=== PATIENT | male | born 1950 | race Caucasian/White ===

== ENCOUNTER → 2018-09-20 | Outpatient (CLI) | payer OTHER ==
[~2018-09-20] MED LIST: ALBU90OI6 INH; CLON.5 PO; CLON1 PO; LEVSOD25 PO; LITH300C PO; LITH300ER PO; LOVA20 PO; LOVA40 PO
[2018-09-20 14:25] LABS: Bacteria Not Seen /hpf; Red Blood Cells, Urine 0-2 /hpf (0-2); Squamous Epithelial Cells Rare /hpf (Few); White Blood Cells, Urine 0-2 /hpf (0-5)
== END ==
LOC: LAB SHORT 13:25 → LAB 13:25
PROVIDERS: Family Medicine
DX: R35.0 Frequency of micturition (principal)
CPT/HCPCS: 81015

== ENCOUNTER → 2018-11-26 | Outpatient (CLI) | payer OTHER ==
[2018-11-26 11:22] LABS: Bacteria Rare /hpf; Red Blood Cells, Urine 0-2 /hpf (0-2); Squamous Epithelial Cells Not Seen /hpf (Few); White Blood Cells, Urine 0-2 /hpf (0-5)
== END | disposition home or self-care (01) ==
LOC: LAB UCHC 09:00 → LAB 09:00 → LAB SHORT 09:00 → LAB FUT 09-25 09:15 → EDSTATUS 09-25 09:15
PROVIDERS: Family Medicine
DX: R35.0 Frequency of micturition (principal)
CPT/HCPCS: 81015

== ENCOUNTER → 2020-11-19 | Outpatient (CLI) | payer OTHER ==
[2020-11-19 12:28] LABS: BASOPHILS ABSOLUTE AUTO 0.07 K/mm3 (0.00-0.23); BASOPHILS PERCENT AUTO 1 % (0-2); EOSINOPHILS PERCENT AUTO 1 % (0-6); Hematocrit 41.7 % (37.0-53.0); Hemoglobin 13.8 g/dL (13.5-17.5); IMMATURE GRAN ABSOLUTE AUTO 0.02 K/mm3 (0.00-0.10); IMMATURE GRAN PERCENT AUTO 0 % (0-1); LYMPHOCYTES PERCENT AUTO 25 % (21-46); MONOCYTES ABSOLUTE AUTO 0.56 K/mm3 (0.16-1.47); MONOCYTES PERCENT AUTO 7 % (4-13); Mean Corpuscular HGB 30.5 pg (26.0-34.0); Mean Corpuscular HGB Conc 33.1 g/dL (31.5-36.5); Mean Corpuscular Volume 92 fL (80-100); Mean Platelet Volume 10.2 fL (9.1-12.4); NEUTROPHILS PERCENT AUTO 66 % (41-73); Platelet Count 239 K/mm3 (150-400); RDW Coefficient Variation 13.3 % (11.7-14.2); RDW Standard Deviation 45.8 fL (35.1-46.3); Red Blood Cell Count 4.52 M/mm3 (4.30-5.90); White Blood Cell Count 8.45 K/mm3 (4.00-11.30)
[2020-11-19 12:51] LABS: Alanine Aminotransfer (ALT/SGP 20 U/L (12-78); Albumin, Blood 4.1 g/dL (3.4-5.0); Alk Phos 67 U/L (40-126); Anion Gap 7 mmol/L (6-16); Aspartate Aminotrans (AST/SGOT 18 U/L (12-37); Bilirubin, Total 0.5 mg/dL (0.1-1.0); Blood Urea Nitrogen 16 mg/dL (8-24); Bun/Creatinine Ratio 15.8 (12.0-20.0); CO2, Blood 28 mmol/L (21-32); Calcium, Blood 9.7 mg/dL (8.5-10.1); Chloride, Blood 105 mmol/L (98-108); Creatinine, Blood 1.01 mg/dL (0.60-1.20); Free Thyroxine 1.03 ng/dL (0.70-1.60); Glomerular Filtration Rate >60 (60-); Glucose, Blood 88 mg/dL (70-99); Potassium, Blood 4.5 mmol/L (3.5-5.5); Sodium, Blood 140 mmol/L (136-145); Thyroid Stimulating Hormone 1.767 uIU/mL (0.360-4.800); Total Protein, Blood 8.1 g/dL (6.4-8.2)
[2020-11-19 15:18] LABS: Triiodothyronine, Free 2.55 pg/mL (2.18-3.98)
== END | disposition home or self-care (01) ==
LOC: LAB SHORT 12:22 → LAB 12:22
PROVIDERS: General Practice
DX: E03.9 Hypothyroidism, unspecified (principal); F31.9 Bipolar disorder, unspecified; Z79.899 Other long term (current) drug therapy
CPT/HCPCS: 80053; 82607; 82746; 84439; 84443; 84481; 85025

== ENCOUNTER → 2020-12-03 | Outpatient (CLI) | payer OTHER | END | disposition home or self-care (01) | LOC: LAB 12:31 → LAB SHORT 12:31 | PROVIDERS: Family Medicine | DX: R35.0 Frequency of micturition (principal) | CPT/HCPCS: 84153 ==

== ENCOUNTER 2021-03-21 10:00 | Day surgery (SDC) | payer OTHER ==
[~2021-03-21] VITALS: Ht 180.3 cm; Wt 86.4 kg
[~2021-03-21 10:00] MED LIST changes: +Cyclobenzaprine5 MG; +EUTHYROX125 MCG; +GABA300; +TAMS.4ER; +XARELTO20 MG
--- NOTE | 2021-03-21 11:07 | NUR ---
03/21/21 1107 Kannan Jaimes BLOCK COMPLETE IN OR ON RIGHT HAND BY DR COOPER. SITE CHECK COMPLETE. PT JOHN, ANAS.
--- NOTE | 2021-03-21 12:15 | NUR ---
03/21/21 1215 RICH PALACIO PT WAITING FOR RIDE IN STEP DOWN RECLINER
== END 2021-03-21 12:10 | disposition home or self-care (01) ==
LOC: ORSCSDS 10:00
PROVIDERS: Orthopaedic Surgery
PROC: 01N50ZZ Release Median Nerve, Open Approach (ICD-10-PCS; principal; 2021-03-21 11:20)
DX: G56.01 Carpal tunnel syndrome, right upper limb (principal); E78.5 Hyperlipidemia, unspecified; F31.9 Bipolar disorder, unspecified; Z79.01 Long term (current) use of anticoagulants; Z79.899 Other long term (current) drug therapy
CPT/HCPCS: J0690; J2250; J7120

== ENCOUNTER 2022-06-13 12:48 | Inpatient (IN) | payer OTHER ==
[~2022-06-13] VITALS: Ht 180.3 cm; Wt 81.2 kg
[2022-06-13 14:13] LABS: BASOPHILS ABSOLUTE AUTO 0.07 K/mm3 (0.00-0.23); BASOPHILS PERCENT AUTO 1 % (0-2); EOSINOPHILS ABSOLUTE AUTO 0.15 K/mm3 (0.00-0.68); EOSINOPHILS PERCENT AUTO 1 % (0-6); Hematocrit 37.9 % (37.0-53.0); Hemoglobin 12.6 g/dL (13.5-17.5); IMMATURE GRAN ABSOLUTE AUTO 0.05 K/mm3 (0.00-0.10); IMMATURE GRAN PERCENT AUTO 0 % (0-1); LYMPHOCYTES ABSOLUTE AUTO 1.67 K/mm3 (0.84-5.20); LYMPHOCYTES PERCENT AUTO 13 % (21-46); MONOCYTES ABSOLUTE AUTO 0.62 K/mm3 (0.16-1.47); MONOCYTES PERCENT AUTO 5 % (4-13); Mean Corpuscular HGB 29.9 pg (26.0-34.0); Mean Corpuscular HGB Conc 33.2 g/dL (31.5-36.5); Mean Corpuscular Volume 90 fL (80-100); Mean Platelet Volume 10.5 fL (9.1-12.4); NEUTROPHILS ABSOLUTE AUTO 10.29 K/mm3 (1.96-9.15); NEUTROPHILS PERCENT AUTO 80 % (41-73); Platelet Count 219 K/mm3 (150-400); RDW Coefficient Variation 14.5 % (11.7-14.2); RDW Standard Deviation 48.2 fL (35.1-46.3); Red Blood Cell Count 4.21 M/mm3 (4.30-5.90); White Blood Cell Count 12.85 K/mm3 (4.00-11.30)
[2022-06-13 14:31] LABS: Albumin, Blood 3.8 g/dL (3.4-5.0); Albumin/Globulin Ratio 1.1 (0.8-1.8); Bilirubin, Total 0.4 mg/dL (0.1-1.0); Bun/Creatinine Ratio 12.7 (12.0-20.0); Calcium, Blood 8.9 mg/dL (8.5-10.1); Creatinine, Blood 1.02 mg/dL (0.60-1.20); Globulin, Blood 3.6 g/dL (2.2-4.0); Potassium, Blood 4.1 mmol/L (3.5-5.5); Total Protein, Blood 7.4 g/dL (6.4-8.2)
[2022-06-13 15:43] LABS: International Normalized Ratio 1.02; Prothrombin Time Results 10.7 Sec (9.7-11.5)
[2022-06-13 15:59] LABS: Lithium 1.21 mmol/L (0.60-1.20)
--- NOTE | 2022-06-14 04:47 | NUR ---
SUMMARY PT ADMITTED FOR L HIP FX, L LEG IS EXTERNALLY ROTATED AND SHORTENED. MEDICATED FOR PAIN PRN, TOLERATED WELL. HAS BEEN NPO SINCE MIDNIGHT. HAS STRONG PEDAL PULSES AND CAP REFILL IS <3 SEC. ON RA, VSS. DENIES N/T, N/V. VOIDING USING URINAL. PATIENT DENIES NEEDS AT THIS TIME. WILL CONT. TO MONITOR AND TREAT PER ORDERS.
--- NOTE | 2022-06-14 14:10 | NUR ---
PATIENT JUST LEFT FOR THE OR.
--- NOTE | 2022-06-14 14:13 | NUR ---
HOME MED DOSAGE: THIS NURSE SPOKE WITH FRANCISCO REGARDING HOME MEDICATIONS, BUT SHE WAS NOT ABLE TO DO IT OVER THE PHONE. HOWEVER, FRANCISCO SAID SHE WOULD BRING IN THE BOTTLES OF MEDICATIONS LATER TODAY.
--- NOTE | 2022-06-14 14:15 | NUR ---
THE PATIENT WAS BROUGHT TO DAY SURGERY FOR HIS PROCEDURE.
[2022-06-14] MEDS ORDERED: XARELTO20 MG PO (15:44)
[2022-06-14] MEDS ORDERED: ALBU90OI INH (15:44)
[2022-06-14] MEDS ORDERED: EUTHYROX125 MCG PO (15:45)
[2022-06-14] MEDS ORDERED: LITH300C PO ×2 (15:47→15:48)
[2022-06-14] MEDS ORDERED: LOVA40 PO (15:49)
[2022-06-14] MEDS ORDERED: GABA300 PO (15:49)
[2022-06-14] MEDS ORDERED: ASPI325 PO (15:50)
[2022-06-14] MEDS ORDERED: MELATONIN5 M1 PO (15:51)
--- NOTE | 2022-06-14 18:40 | NUR ---
PATIENT CAME BACK FROM PACU TODAY AT 1835. POD 0 LEFT HIP NAILING PATIENT IS DROWSY BUT IS ABLE TO ANSWER QUESTIONS APPROPRIATELY. VS ARE WNL AND IS ON 2L NC WITH >90% OXYGEN SATS. PATIENT DENIES NUMBNESS OR TINGLING IN ALL EXTREMITIES. HE IS ABLE TO WIGGLE FINGERS AND TOES WHEN ASKED. HE IS TOLERATING SMALL AMOUNTS OF PO INTAKE. HE HAS 3 AQUACEL DRESSINGS THAT ARE C/D/I. IS AT BEDSIDE. PATIENT IS SITTING UP IN BED WITH CALL LIGHT IN REACH.
--- NOTE | 2022-06-15 05:04 | NUR ---
MACHINE I TRIMMER SUMMARY PT IS POD 0 FOR L HIP NAILING. AQUACEL X3 TO R HIP/LEG C/D/I WITH SMALL AMOUNT OF SHADOWING TO MOST PROXIMAL DRESSING. PAIN HAS BEEN CONTROLLED WITH TRAMADOL, PT ABLE TO SLEEP FOR LARGE PORTION OF THE NIGHT. PT HAS NOT SEEN PHYSICAL THERAPY YET AND HAS NOT BEEN VERY RECEPTIVE TO THE IDEA OF GETTING OUT OF BED. EDUCATED PT ON IMPORTANCE OF AMBULATING POST OP. PT ON 2L O2 FOR SHORT PERIOD AFTER COMING BACK FROM SURGERY, NOW ON RA. VSS, WILL CONTINUE TO MONITOR.
[2022-06-15 05:06] LABS: BASOPHILS ABSOLUTE AUTO 0.03 K/mm3 (0.00-0.23); BASOPHILS PERCENT AUTO 0 % (0-2); EOSINOPHILS ABSOLUTE AUTO 0.01 K/mm3 (0.00-0.68); EOSINOPHILS PERCENT AUTO 0 % (0-6); Hemoglobin 10.7 g/dL (13.5-17.5); IMMATURE GRAN ABSOLUTE AUTO 0.09 K/mm3 (0.00-0.10); IMMATURE GRAN PERCENT AUTO 1 % (0-1); LYMPHOCYTES PERCENT AUTO 8 % (21-46); MONOCYTES ABSOLUTE AUTO 1.39 K/mm3 (0.16-1.47); MONOCYTES PERCENT AUTO 9 % (4-13); Mean Corpuscular HGB 29.8 pg (26.0-34.0); Mean Corpuscular HGB Conc 32.4 g/dL (31.5-36.5); Mean Corpuscular Volume 92 fL (80-100); Mean Platelet Volume 10.8 fL (9.1-12.4); NEUTROPHILS ABSOLUTE AUTO 13.34 K/mm3 (1.96-9.15); NEUTROPHILS PERCENT AUTO 83 % (41-73); Platelet Count 176 K/mm3 (150-400); RDW Coefficient Variation 14.6 % (11.7-14.2); RDW Standard Deviation 49.1 fL (35.1-46.3); Red Blood Cell Count 3.59 M/mm3 (4.30-5.90); White Blood Cell Count 16.06 K/mm3 (4.00-11.30)
[2022-06-15 16:20] LABS: Lithium 0.56 mmol/L (0.60-1.20)
--- NOTE | 2022-06-15 18:03 | NUR ---
PT REPORTS PAIN TO LEFT HIP IS WELL CONTROLLED, PT REQUESTED DIET PEPSI AND TYLENOL FOR HEADACHE WHICH HE STATES HELPED. DAVID PO FOODS AND FLUIDS WITHOUT NAUSEA. PT COOPERATIVE WITH CARE
--- NOTE | 2022-06-16 03:42 | NUR ---
TIER AND DETONATOR SUMMARY PT IS POD 1 FOR L HIP GAMMA NAIL. DRESSINGS TO L HIP/LEG C/D/I. PT DECLINED TO AMBULATE TONIGHT. MEDICATED FOR PAIN WITH TRAMADOL AT BEDTIME, PT HAS SLEPT WELL THROUGH THE NIGHT. PT INDICATED THAT HE IS HOPING TO GO [place] BECAUSE HE DOES NOT FEEL CONFIDENT IN HIS ABILITY TO WALK AT HOME YET. VSS, WILL CONTINUE TO MONITOR.
[2022-06-16 04:10] LABS: BASOPHILS ABSOLUTE AUTO 0.07 K/mm3 (0.00-0.23); BASOPHILS PERCENT AUTO 1 % (0-2); EOSINOPHILS ABSOLUTE AUTO 0.29 K/mm3 (0.00-0.68); EOSINOPHILS PERCENT AUTO 2 % (0-6); Hematocrit 32.3 % (37.0-53.0); Hemoglobin 10.8 g/dL (13.5-17.5); IMMATURE GRAN ABSOLUTE AUTO 0.07 K/mm3 (0.00-0.10); IMMATURE GRAN PERCENT AUTO 1 % (0-1); LYMPHOCYTES ABSOLUTE AUTO 1.83 K/mm3 (0.84-5.20); LYMPHOCYTES PERCENT AUTO 14 % (21-46); MONOCYTES ABSOLUTE AUTO 1.13 K/mm3 (0.16-1.47); MONOCYTES PERCENT AUTO 8 % (4-13); Mean Corpuscular HGB 30.2 pg (26.0-34.0); Mean Corpuscular HGB Conc 33.4 g/dL (31.5-36.5); Mean Corpuscular Volume 90 fL (80-100); Mean Platelet Volume 10.7 fL (9.1-12.4); NEUTROPHILS ABSOLUTE AUTO 10.21 K/mm3 (1.96-9.15); NEUTROPHILS PERCENT AUTO 75 % (41-73); Platelet Count 190 K/mm3 (150-400); RDW Coefficient Variation 14.4 % (11.7-14.2); Red Blood Cell Count 3.58 M/mm3 (4.30-5.90)
[2022-06-16 04:30] LABS: Albumin, Blood 3.2 g/dL (3.4-5.0); Anion Gap 5 mmol/L (6-16); Blood Urea Nitrogen 16 mg/dL (8-24); Bun/Creatinine Ratio 17.6 (12.0-20.0); CO2, Blood 25 mmol/L (21-32); Calcium, Blood 9.1 mg/dL (8.5-10.1); Chloride, Blood 112 mmol/L (98-108); Creatinine, Blood 0.91 mg/dL (0.60-1.20); Glomerular Filtration Rate 90 (60-); Glucose, Blood 104 mg/dL (70-99); Potassium, Blood 4.4 mmol/L (3.5-5.5); Sodium, Blood 142 mmol/L (136-145)
[2022-06-16 06:13] LABS: Lithium 0.41 mmol/L (0.60-1.20)
--- NOTE | 2022-06-16 08:40 | NUR ---
PATIENT VERBALIZED TO THIS RN THAT HE IS REFUSING PHYSICAL THERAPY D/T "NOT WORKING WELL WITH THAT PHYSICAL THERAPIST", REFERRING TO GILDA WHOM ATTEMPTED TO WORK WITH PATIENT. THIS RN SPOKE WITH PT LEAD SHARIF ZIMMERMAN TO REQUEST A DIFFERENT THERAPIST SEE PATIENT IF POSSIBLE.
[2022-06-16] MEDS ORDERED: HYDROCODONE-AC1 EA12 PO (15:00)
[2022-06-16] MEDS ORDERED: ACET325 PO (15:00)
--- NOTE | 2022-06-16 17:08 | NUR ---
PATIENT APPEALING DISCHARGE CARE MANAGEMENT NOTIFIED THIS RN OF PATIENT APPEALING DISCHARGE. PATIENT HAD QUESTIONS REGARDING THIS D/T PATIENT UNABLE TO GET AHOLD OF [facility] APPEAL NUMBER PATIENT WAS GIVEN BY SIX COLOR PRESS OPERATOR JOSE. PATIENT SHOWING SIGNS OF STRESS/ANXIETY REGARDING BEING DISCHARGED WHILE ATTEMPTING TO APPEAL. THIS RN REASSURED PATIENT THAT WE WOULD NOT "KICK HIM OUT" DURING THIS PROCESS AND NO RIDE IS ARRANGED FOR HIM TO BE TRANSFERRED HOME AT THIS TIME. REASSURED THAT CARE MANAGEMENT WOULD BE ASSISTING & FOLLOWING UP.
--- NOTE | 2022-06-16 17:29 | NUR ---
SHIFT SUMMARY POD 2 L HIP NAILING, X3 AQUACELS TO LEFT HIP, TOP AQUACEL HAS SMALL SPOT OF OLD DRAINAGE NOTED, OTHER 2 C/D/I. PATIENT REPORTS MODERATE PAIN, INCREASES W/ MOVEMENT, MANAGED PER EMAR. 1P MIN-MOD ASSIST W/ FWW & GB. PATIENT DECLINED TO STAY UP IN CHAIR T/O SHIFT OR AMBULATE T/O SHIFT, UP TO CHAIR FOR MEALS ONLY. TTWB ON LEFT LEG. PATIENT OK'D TO DISCHARGE HOME W/ HOME HEALTH, ALTHOUGH PATIENT APPEALING DISCHARGE AT THIS TIME, SEE PREVIOUS NOTE & CM NOTE. CALLS MARKO IN REACH. WILL REPORT TO ONCDIXIE RN AT 1900.
[2022-06-17 04:41] LABS: BASOPHILS ABSOLUTE AUTO 0.09 K/mm3 (0.00-0.23); BASOPHILS PERCENT AUTO 1 % (0-2); EOSINOPHILS ABSOLUTE AUTO 0.44 K/mm3 (0.00-0.68); EOSINOPHILS PERCENT AUTO 4 % (0-6); Hematocrit 32.6 % (37.0-53.0); Hemoglobin 10.7 g/dL (13.5-17.5); IMMATURE GRAN ABSOLUTE AUTO 0.04 K/mm3 (0.00-0.10); IMMATURE GRAN PERCENT AUTO 0 % (0-1); LYMPHOCYTES ABSOLUTE AUTO 1.96 K/mm3 (0.84-5.20); LYMPHOCYTES PERCENT AUTO 16 % (21-46); MONOCYTES ABSOLUTE AUTO 1.06 K/mm3 (0.16-1.47); MONOCYTES PERCENT AUTO 9 % (4-13); Mean Corpuscular HGB Conc 32.8 g/dL (31.5-36.5); Mean Corpuscular Volume 91 fL (80-100); Mean Platelet Volume 10.6 fL (9.1-12.4); NEUTROPHILS ABSOLUTE AUTO 8.47 K/mm3 (1.96-9.15); NEUTROPHILS PERCENT AUTO 70 % (41-73); Platelet Count 214 K/mm3 (150-400); RDW Coefficient Variation 14.4 % (11.7-14.2); RDW Standard Deviation 48.1 fL (35.1-46.3); Red Blood Cell Count 3.57 M/mm3 (4.30-5.90); White Blood Cell Count 12.06 K/mm3 (4.00-11.30)
[2022-06-17 04:56] LABS: Anion Gap 4 mmol/L (6-16); Blood Urea Nitrogen 15 mg/dL (8-24); Bun/Creatinine Ratio 17.1 (12.0-20.0); CO2, Blood 27 mmol/L (21-32); Calcium, Blood 9.3 mg/dL (8.5-10.1); Chloride, Blood 107 mmol/L (98-108); Creatinine, Blood 0.88 mg/dL (0.60-1.20); Glomerular Filtration Rate 92 (60-); Glucose, Blood 114 mg/dL (70-99); Phosphorus, Blood 2.6 mg/dL (2.5-4.9); Sodium, Blood 138 mmol/L (136-145)
--- NOTE | 2022-06-17 05:45 | NUR ---
SHIFT SUMMARY PT A&OX4, AND COOPERATIVE WITH CARE. NO ACUTE CHANGES. PT DID NOT NEED PAIN COVERAGE THIS SHIFT. TOLERATING PO INTAKE. 3 DRESSINGS TO L HIP, LIGHT SHADOWING ON TOP AQUACEL, OTHER 2 C/D/I. 1 ASSIST WITH FWW/GB. CALLS APPROPRIATELY, CALL LIGHT WITHIN REACH.
--- NOTE | 2022-06-17 08:30 | NUR ---
LITHIUM DOSE CLARFIED WITH PATIENTS PHARMACY. PT REQUESTED THAT GABAPENTIN AND XARELTO BE ADMINISTERED AT NIGHT PER HIS HOME ROUTINE. WILL CONTINUE TO MONITOR.
--- NOTE | 2022-06-17 16:11 | NUR ---
SHIFT SUMMARY PT IS POD#3 FROM L HIP NAILING. PLAN FOR DISCHARGE HOME WITH HOME HEALTH SUNDAY OR EARLIER IF PT'S CONTESTED DISCHARGE CAN BE RESOLVED. PAIN MANAGED WITH PO PAIN MEDICATION. PT IS TOLERATING PO. PAIN MANAGED. PT IS A SBA WHEN OOB AND AMBULATING. WILL MONITOR UNTIL REPORT TO NOC RN.
--- NOTE | 2022-06-18 05:36 | NUR ---
SHIFT SUMMARY POD 3 LEFT HIP PINNING, NO ACUTE CHANGES TO REPORT OVERNIGHT. PT HAS RESTED MOST OF THE NIGHT. PAIN HAS BEEN WELL MANAGED MOST OF THE SHIFT, AND HE HAS DENIED PAIN. HOWEVER, PT DID BEGIN COMPLANING OF PAIN THIS AM. PT STATES PAIN WAS BROUGHT ON AFTER DOING HIS PT EXERCISES, PT MEDICATED PER EMAR. DRESSINGS TO LEFT HIP CHANGED THIS SHIFT. BED IN LOWEST POSITION, CALL LIGHT WITHIN REACH.
--- NOTE | 2022-06-18 17:07 | NUR ---
summary NO ACUTE CHANGES T/O SHIFT. PT SAT UP IN RECLINER MOST OF SHIFT AND AMBULATED WITH CHUCK WAGON DRIVER IN [place] TWICE. PAIN CONTROLLED PER EMAR. CALL LIGHT IN REACH.
[2022-06-19 03:49] LABS: Hematocrit 32.8 % (37.0-53.0); Hemoglobin 10.7 g/dL (13.5-17.5); Mean Corpuscular HGB 29.7 pg (26.0-34.0); Mean Corpuscular HGB Conc 32.6 g/dL (31.5-36.5); Mean Corpuscular Volume 91 fL (80-100); Mean Platelet Volume 10.4 fL (9.1-12.4); Platelet Count 264 K/mm3 (150-400); RDW Standard Deviation 46.9 fL (35.1-46.3); White Blood Cell Count 10.49 K/mm3 (4.00-11.30)
--- NOTE | 2022-06-19 05:18 | NUR ---
SHIFT SUMMARY PT A&OX4 AND COOPERATIVE WITH CARE. NO ACUTE CHANGES. MEDICATED ONCE FOR PAIN. TOLERATING PO INTAKE. REPLACED UPPER AQUACEL. 1-ASSIST TO BATHROOM. CALLS APPROPRIATELY, CALL LIGHT WITHIN REACH.
--- NOTE | 2022-06-19 11:00 | NUR ---
DISCHARGE SUMMARY POD5 L HIP GAMMA NAIL, A/OX4, VSS, TOLERATING PO, PAIN TOLERABLE, AMBULATES WITH 1 PERSON STAND BY ASSIST, PT REPORTS BEING READY TO GO HOME TODAY, DISCUSSED TRANSPORT HOME WITH ASSISTANT ART DIRECTOR WHO ASSISTED WITH GETTING IT SET UP. PROVIDED HIM WITH HIS DISCHARGE INFORMATION INCLUDING A HARD SCRIPT FOR PAIN MANAGEMENT AT HOME. PATIENT ASKED IF IT WAS CALLED IN AND THIS RN EDUCATED HIM THAT CONTROLLED SUBSTANCES MUST BE PRESENTED TO THE PHARMACY A HAND WRITTEN/SIGNED SCRIPT. PT HAD NO OTHER QUESTIONS AT TIME OF DISCHARGE, HE WAS TAKEN OUT VIA WC VAN FROM [facility] TO GO HOME.
== END 2022-06-19 10:34 | disposition home health service (06) | DRG 482 ==
LOC: ER 12:48 → SURS 14:32
PROVIDERS: Emergency Medicine; Family Medicine; Internal Medicine; Nurse Practitioner Acute Care; Orthopaedic Surgery; ADMIT Internal Medicine
PROC: 0QH704Z Insertion of Internal Fixation Device into Left Upper Femur, Open Approach (ICD-10-PCS; principal; 2022-06-14 14:00)
DX: S72.142A Displaced intertrochanteric fracture of left femur, initial encounter for closed fracture (principal); D72.829 Elevated white blood cell count, unspecified; D64.9 Anemia, unspecified; F31.9 Bipolar disorder, unspecified; E03.9 Hypothyroidism, unspecified; E78.5 Hyperlipidemia, unspecified; M19.90 Unspecified osteoarthritis, unspecified site; F17.210 Nicotine dependence, cigarettes, uncomplicated; F12.10 Cannabis abuse, uncomplicated; R78.89 Finding of other specified substances, not normally found in blood; W01.0XXA Fall on same level from slipping, tripping and stumbling without subsequent striking against object, initial encounter; Z79.899 Other long term (current) drug therapy; Z86.718 Personal history of other venous thrombosis and embolism; Z98.890 Other specified postprocedural states; Z79.01 Long term (current) use of anticoagulants
CPT/HCPCS: 36415; 71045; 73502; 73552; 73700; 76377; 80053; 80069; 80178; 85025; 85027; 85610; 93005; 93010; 94760; 94762; 96374; 96375; 97110; 97112; 97116; 97161; 97530; 99284-25; A9270; C1713; C1769; J0171; J0690; J0735; J1100; J1170; J1885; J2250; J2310; J2370; J2405; J2704; J2795; J3010; J7030; J7120